=== PATIENT | male | born 1980 | race African-American/Black ===

== ENCOUNTER 2020-02-27 16:28 | Emergency (ER) | payer OTHER ==
[2020-02-27] MEDS ORDERED: LIDOCAINE 1% INJ-PF (10 MG/ML) 30 ML SDV INJ ONE (18:09)
--- NOTE | 2020-02-27 18:16 | ER Document Report ---
ED General - General Chief Complaint: Finger Injury Stated Complaint: FINGER INJURY - HPI Notes: Chief Complaint: Left index finger laceration Historian: History obtained from patient HPI: This is a 39-year-old male presents to the ER complaining of a left index finger laceration that occurred about 8 PM last night. Patient says he was using a preparing box tender and tenting done screw the blade and the depth cutting the dorsum of his index finger. Patient says he did provide wound care initially. Tetanus shot is up-to-date. He denies range of motion or sensory deficit to finger. ROS: Constitutional: no fevers. HEENT: no ALBA, sore throat, or vision changes. CV: no chest pain or palpitations. Resp: no cough or SOB. GI: no abdominal pain, or n/v/d. : no dysuria, hematuria, or incont. MSK: Left finger laceration Skin: no rashes or itching. Neuro: no seizures, weakness, numbness, or confusion. Hematological: no ecchymosis or easy bleeding. Endocrine: no polyuria/polydipsia, no heat/cold intolerance. Psych: no SI/HI, AH/VH or memory loss. PMHx: Reviewed and agree as charted by RN. PSHx: Reviewed and agree as charted by RN. SOCHx: Reviewed and agree as charted by RN. FHX: No significant familial comorbid conditions directly related to patient complaint Current Medications: Reviewed and agree with the patient medications as charted by the RN. Allergies: Reviewed and agree with the listed allergies as charted by the RN Physical Exam: Vitals: Reviewed in chart as documented by RN. General: Alert and in NAD. Head: Normocephalic; atraumatic Eyes: PERRLA, Conjunctivae clear sclerae non-icteric bilat ENT: no soft palate swelling or uvular deviation Neck: trachea midline, no unilateral swelling/tenderness/lymphadenopathy CV: RRR, no M/R/G; symmetric distal pulses Resp: respirations even and unlabored, CTA bilat. GI: abd soft and nondistended. NTTP. normal BS. no masses/HSM. no CVAT bilat MSK: Left index2 cm avulsion type laceration to the radial side of the proximal mid phalanx. V-shaped laceration. Widely gaping. Exposed subcutaneous tissue. Some mild serous drainage without active bleeding. No surrounding edema or erythema. Patient does have full range of motion of the MCP, PIP, DIP. Exte nsion is intact. Sensations intact diffusely. Cap refill less than 3 seconds. Radial pulse 2+. Skin: warm, moist, good turgor. no rash/lesions Neuro: Alert and oriented X 4. following CN 2-12 intact. no unilateral weakness/numbness Psych: No SI/HI or AH/VH. Medical Decision-Making: Medical Decision-making/Differential Diagnosis: Consider various etiologies including but not limited to skin/soft tissue structure injury, MSK injury, strain/sprain, fracture, dislocation, bursitis, tendonitis, contusion, ect Plan-imaging not indicated as I can visualize wound bed no gross foreign body. Plan for digital block, wound cleaning/irrigation, suture repair. Sutures removed in about 1 week by PCP or ED. Discussed return factors and infection signs. Will give patient a few days of prophylactic antibiotics due to extended time between injury and repair. Patient is agreeable to plan. PCP recheck 3 days. This course of action was discussed with the patient and/or family. They were amenable to this, verbalized understanding, and were without further questions. Past Medical History - Social History Smoking Status: Never Smoker Frequency of alcohol use: None Drug Abuse: None Patient has homicidal ideation: No Physical Exam - Vital signs Vitals: Temp Pulse Resp BP Pulse Ox 98.2 F 78 16 173/68 H 98 02/27/20 16:32 02/27/20 16:32 02/27/20 16:32 02/27/20 16:32 02/27/20 16:32 Course - Vital Signs Vital signs: Temp Pulse Resp BP Pulse Ox 98.2 F 78 16 173/68 H 98 02/27/20 16:32 02/27/20 16:32 02/27/20 16:32 02/27/20 16:32 02/27/20 16:32 - Laboratory Results Critical Laboratory Results Reviewed: No Critical Results - Radiology Results Critical Radiology Results Reviewed: No Critical Results Procedures - Laceration/Wound Repair Left Dorsal 2nd digit Wound's Depth, Shape: Flap Anesthetic type: 1% Lidocaine Volume Anesthetic (mLs): 3 Wound explored: Clean Irrigated w/ Saline (mLs): 1,000 Wound Repaired With: Sutures - 5.0 ethilon Suture Size/Type: 5:0 Number of Sutures: 5 Layer Closure?: No Post-procedure wound care: Sterile dressing applied Post-procedure NV exam normal: Yes Complications: No Discharge - Discharge Clinical Impression: Laceration of left index finger w/o foreign body w/o damage to nail Qualifiers: Encounter type: initial encounter Qualified Code(s): S61.211A - Laceration without foreign body of left index finger without damage to nail, initial encounter Condition: Stable Disposition: HOME, SELF-CARE Instructions: Laceration Care ([facility]) Additional Instructions: Keep wound clean and dry. Do not submerge underwater but running water is okay. Suture removal in 1 week by your doctor or in the ER. Follow all printed instructions. Take medications as prescribed. Follow up with your doctor in 2-3 days for re-check. Return to the ER if your condition worsens. Prescriptions: Cephalexin Monohydrate [Keflex 500 mg Capsule] 500 mg PO BID 5 Days #10 capsule
== END 2020-02-27 19:12 | disposition home or self-care (01) ==
LOC: ER 16:28
DX: S61.211A Laceration without foreign body of left index finger without damage to nail, initial encounter (principal); W45.8XXA Other foreign body or object entering through skin, initial encounter
CPT/HCPCS: 99283